=== PATIENT | male | born 1950 | race Caucasian/White ===

== ENCOUNTER 2022-09-25 09:38 | Day surgery (SDC) | payer MEDICARE, MEDICAID ==
[~2022-09-25] VITALS: Ht 177.8 cm; Wt 79.4 kg
[2022-09-25] MEDS: MIDAZOLAM HCL 5 MG/5 ML VIAL ONE ×5 (10:40→11:30)
[2022-09-25] MEDS: MEPERIDINE 50 MG/ML VIAL ONE ×2 (10:40→10:42)
[2022-09-25 17:23] VITALS: BP_SYST 106
== END 2022-09-25 14:20 | disposition home or self-care (01) ==
LOC: SDS 09:38 → SMU 09:41 → SDS 14:20
PROVIDERS: ATTEND Internal Medicine Gastroenterology
DX: D50.9 Iron deficiency anemia, unspecified (principal); K57.30 Diverticulosis of large intestine without perforation or abscess without bleeding; K64.8 Other hemorrhoids; K64.9 Unspecified hemorrhoids; K29.80 Duodenitis without bleeding; K29.50 Unspecified chronic gastritis without bleeding; K44.9 Diaphragmatic hernia without obstruction or gangrene; E78.00 Pure hypercholesterolemia, unspecified; Z88.0 Allergy status to penicillin; Z79.84 Long term (current) use of oral hypoglycemic drugs; Z79.899 Other long term (current) drug therapy
CPT/HCPCS: 45381; 45386; 43239; 87081; 82962; 36415; 88305; 88312; 88313; 99152; 99153; G0378; J2250; J2175